=== PATIENT | female | born 1935 | race Caucasian/White ===

== ENCOUNTER → 2016-07-10 | Outpatient (CLI) | payer MEDICARE, OTHER ==
[~2016-07-10] MED LIST: TAPAZOLE5 MG PO
== END ==
LOC: LAB 12:27
DX: Z51.81 Encounter for therapeutic drug level monitoring (principal); Z79.01 Long term (current) use of anticoagulants; I48.0 Paroxysmal atrial fibrillation

== ENCOUNTER → 2016-07-31 | Outpatient (CLI) | payer MEDICARE, OTHER | LOC: LAB 14:55 | DX: Z51.81 Encounter for therapeutic drug level monitoring (principal); I48.0 Paroxysmal atrial fibrillation; Z79.01 Long term (current) use of anticoagulants ==

== ENCOUNTER → 2016-08-28 | Outpatient (CLI) | payer MEDICARE, OTHER ==
[2013-07-18 15:34] VITALS: BP 175/73
== END ==
LOC: LAB 10:14
DX: Z51.81 Encounter for therapeutic drug level monitoring (principal); Z79.01 Long term (current) use of anticoagulants; I48.0 Paroxysmal atrial fibrillation

== ENCOUNTER → 2017-07-02 | Outpatient (CLI) | payer MEDICARE, OTHER ==
[2013-07-18 15:34] VITALS: BP 175/73
[2017-07-02 21:14] LABS: HEMATOCRIT 35.3 % (37.0-47.0); HEMOGLOBIN 11.1 g/dL (12.5-16.0); MEAN CELL VOLUME 96 fl (78-100); MEAN CORPUSCULAR HEMOGLOBIN 30 pg (27-31); MEAN CORPUSCULAR HGB CONC 31 g/dL (33-37); PLATELET COUNT 247 K/mm3 (130-400); RED BLOOD COUNT 3.69 M/mm3 (4.10-5.30); RED CELL DISTRIBUTION WIDTH 13.2 % (11.5-14.5)
[2017-07-02 22:09] LABS: ALBUMIN 3.7 g/dL (3.5-5.0); BUN/CREATININE RATIO 19.2 (6.0-26.0); CALCIUM 9.1 mg/dL (8.4-10.2); POTASSIUM 4.8 mmol/L (3.6-5.0); TOTAL BILIRUBIN 0.2 mg/dL (0.2-1.3); TOTAL PROTEIN 7.1 g/dL (6.3-8.2)
[2017-07-02 23:28] LABS: MEAN PLATELET VOLUME 12.1 fl (7.4-10.4)
[2017-07-02 23:40] LABS: LYMPHOCYTE 37 % (20-51); NEUTROPHILS 30 % (42-75)
[2017-07-02 23:41] LABS: ERYTHROCYTE SEDIMENTATION RATE 31 mm/hr (0-30); MONOCYTE 27 % (3-10)
== END ==
LOC: LAB 16:42
PROVIDERS: Internal Medicine
DX: I48.91 Unspecified atrial fibrillation (principal); E78.5 Hyperlipidemia, unspecified; M85.89 Other specified disorders of bone density and structure, multiple sites; E61.1 Iron deficiency; I27.0 Primary pulmonary hypertension; E05.00 Thyrotoxicosis with diffuse goiter without thyrotoxic crisis or storm; Z12.11 Encounter for screening for malignant neoplasm of colon

== ENCOUNTER → 2018-01-11 | Outpatient (CLI) | payer MEDICARE, OTHER ==
[2013-07-18 15:34] VITALS: BP 175/73
[2018-01-11 15:11] LABS: HEMATOCRIT 33.7 % (37.0-47.0); HEMOGLOBIN 10.5 g/dL (12.5-16.0); MEAN CELL VOLUME 96 fl (78-100); MEAN CORPUSCULAR HEMOGLOBIN 30 pg (27-31); MEAN CORPUSCULAR HGB CONC 31 g/dL (33-37); MEAN PLATELET VOLUME 11.8 fl (7.4-10.4); PLATELET COUNT 238 K/mm3 (130-400); RED BLOOD COUNT 3.51 M/mm3 (4.10-5.30); RED CELL DISTRIBUTION WIDTH 13.5 % (11.5-14.5); WHITE BLOOD COUNT 2.2 K/mm3 (4.8-10.8)
[2018-01-11 16:12] LABS: ALBUMIN 3.8 g/dL (3.5-5.0); POTASSIUM 4.7 mmol/L (3.6-5.0); TOTAL BILIRUBIN 0.4 mg/dL (0.2-1.3); TOTAL PROTEIN 6.7 g/dL (6.3-8.2)
[2018-01-11 21:50] LABS: BAND 2 % (0-10); LYMPHOCYTE 40 % (20-51); MONOCYTE 33 % (3-10); NEUTROPHILS 14 % (42-75)
[2018-01-11 21:51] LABS: ERYTHROCYTE SEDIMENTATION RATE 38 mm/hr (0-30)
== END ==
LOC: LAB 14:30
PROVIDERS: Internal Medicine
DX: I48.91 Unspecified atrial fibrillation (principal); E05.00 Thyrotoxicosis with diffuse goiter without thyrotoxic crisis or storm; E61.1 Iron deficiency; M85.80 Other specified disorders of bone density and structure, unspecified site

== ENCOUNTER → 2018-07-18 | Outpatient (CLI) | payer MEDICARE, OTHER ==
[2013-07-18 15:34] VITALS: BP 175/73
[2018-07-18 16:45] LABS: CALCIUM 9.3 mg/dL (8.4-10.2); POTASSIUM 4.4 mmol/L (3.6-5.0); TOTAL BILIRUBIN 0.3 mg/dL (0.2-1.3); TOTAL PROTEIN 7.5 g/dL (6.3-8.2)
[2018-07-18 16:47] LABS: HEMATOCRIT 34.6 % (37.0-47.0); HEMOGLOBIN 10.7 g/dL (12.5-16.0); MEAN CELL VOLUME 96 fl (78-100); MEAN CORPUSCULAR HEMOGLOBIN 30 pg (27-31); MEAN CORPUSCULAR HGB CONC 31 g/dL (33-37); MEAN PLATELET VOLUME 11.2 fl (7.4-10.4); PLATELET COUNT 263 K/mm3 (130-400); RED BLOOD COUNT 3.61 M/mm3 (4.10-5.30); RED CELL DISTRIBUTION WIDTH 13.2 % (11.5-14.5)
[2018-07-18 20:31] LABS: WHITE BLOOD COUNT 1.9 K/mm3 (4.8-10.8)
[2018-07-18 20:39] LABS: LYMPHOCYTE 54 % (20-51); MONOCYTE 25 % (3-10); NEUTROPHILS 10 % (42-75)
[2018-07-19 00:45] LABS: ERYTHROCYTE SEDIMENTATION RATE 30 mm/hr (0-30)
== END ==
LOC: LAB 15:57
PROVIDERS: Internal Medicine
DX: E61.1 Iron deficiency (principal); M85.89 Other specified disorders of bone density and structure, multiple sites; E78.5 Hyperlipidemia, unspecified; I27.0 Primary pulmonary hypertension; I48.91 Unspecified atrial fibrillation; R20.2 Paresthesia of skin

== ENCOUNTER → 2018-08-02 | Outpatient (CLI) | payer MEDICARE, OTHER ==
[2013-07-18 15:34] VITALS: BP 175/73
== END ==
LOC: RAD 11:00
DX: M18.10 Unilateral primary osteoarthritis of first carpometacarpal joint, unspecified hand (principal)

== ENCOUNTER → 2019-09-20 | Outpatient (CLI) | payer MEDICARE, OTHER ==
[2013-07-18 15:34] VITALS: BP 175/73
[2019-09-20 11:58] LABS: ALBUMIN 3.9 g/dL (3.4-4.8); HEMATOCRIT 36.4 % (37.0-47.0); HEMOGLOBIN 10.9 g/dL (12.5-16.0); MEAN CELL VOLUME 96 fl (78-100); MEAN CORPUSCULAR HEMOGLOBIN 29 pg (27-31); MEAN CORPUSCULAR HGB CONC 30 g/dL (33-37); MEAN PLATELET VOLUME 10.4 fl (7.4-10.4); PLATELET COUNT 294 K/mm3 (130-400); POTASSIUM 4.8 mmol/L (3.5-5.1); RED CELL DISTRIBUTION WIDTH 14.2 % (11.5-14.5); WHITE BLOOD COUNT 2.8 K/mm3 (4.8-10.8)
[2019-09-20 11:59] LABS: CALCIUM 9.4 mg/dL (8.3-10.5)
[2019-09-20 12:00] LABS: TOTAL PROTEIN 7.5 g/dL (6.2-8.1)
[2019-09-20 12:02] LABS: TOTAL BILIRUBIN 0.3 mg/dL (0.2-1.2)
[2019-09-20 12:39] LABS: LYMPHOCYTE 31 % (20-51); MONOCYTE 25 % (3-10); NEUTROPHILS 39 % (42-75)
[2019-09-20 13:24] LABS: ERYTHROCYTE SEDIMENTATION RATE 67 mm/hr (0-30)
== END ==
LOC: LAB 10:34
PROVIDERS: Internal Medicine
DX: I48.91 Unspecified atrial fibrillation (principal); E61.1 Iron deficiency; M85.89 Other specified disorders of bone density and structure, multiple sites; I27.0 Primary pulmonary hypertension; R20.2 Paresthesia of skin

== ENCOUNTER → 2020-07-16 | Outpatient (CLI) | payer MEDICARE, OTHER ==
[2013-07-18 15:34] VITALS: BP 175/73
[2020-07-16 15:24] LABS: HEMATOCRIT 37.7 % (37.0-47.0); HEMOGLOBIN 11.4 g/dL (12.5-16.0); MEAN CELL VOLUME 98 fl (78-100); MEAN CORPUSCULAR HEMOGLOBIN 30 pg (27-31); MEAN CORPUSCULAR HGB CONC 30 g/dL (33-37); MEAN PLATELET VOLUME 10.4 fl (7.4-10.4); PLATELET COUNT 231 K/mm3 (130-400); RED BLOOD COUNT 3.85 M/mm3 (4.10-5.30); RED CELL DISTRIBUTION WIDTH 13.2 % (11.5-14.5)
[2020-07-16 15:44] LABS: ALBUMIN 3.9 g/dL (3.4-4.8)
[2020-07-16 15:45] LABS: WHITE BLOOD COUNT 1.8 K/mm3 (4.8-10.8)
[2020-07-16 15:46] LABS: CALCIUM 9.4 mg/dL (8.3-10.5)
[2020-07-16 15:49] LABS: TOTAL BILIRUBIN 0.2 mg/dL (0.2-1.2)
[2020-07-16 16:15] LABS: POTASSIUM 4.1 mmol/L (3.5-5.1)
[2020-07-16 16:17] LABS: TOTAL PROTEIN 7.2 g/dL (6.2-8.1)
[2020-07-16 16:40] LABS: LYMPHOCYTE 39 % (20-51); MONOCYTE 33 % (3-10); NEUTROPHILS 21 % (42-75); TEAR DROP CELLS 2+
== END ==
LOC: LAB 15:06
PROVIDERS: Internal Medicine
DX: D72.819 Decreased white blood cell count, unspecified (principal); K90.9 Intestinal malabsorption, unspecified; I27.20 Pulmonary hypertension, unspecified; E05.00 Thyrotoxicosis with diffuse goiter without thyrotoxic crisis or storm

== ENCOUNTER → 2021-02-03 | Outpatient (CLI) | payer MEDICARE, OTHER ==
[2021-02-03 16:39] LABS: HEMATOCRIT 37.7 % (37.0-47.0); HEMOGLOBIN 11.6 g/dL (12.5-16.0); MEAN CELL VOLUME 96 fl (78-100); MEAN CORPUSCULAR HEMOGLOBIN 30 pg (27-31); MEAN CORPUSCULAR HGB CONC 31 g/dL (33-37); MEAN PLATELET VOLUME 10.5 fl (7.4-10.4); PLATELET COUNT 232 K/mm3 (130-400); RED BLOOD COUNT 3.92 M/mm3 (4.10-5.30); RED CELL DISTRIBUTION WIDTH 14.8 % (11.5-14.5); WHITE BLOOD COUNT 2.2 K/mm3 (4.8-10.8)
[2021-02-03 16:54] LABS: CALCIUM 9.6 mg/dL (8.3-10.5)
[2021-02-03 16:56] LABS: TOTAL PROTEIN 7.3 g/dL (6.2-8.1)
[2021-02-03 16:57] LABS: TOTAL BILIRUBIN 0.3 mg/dL (0.2-1.2)
[2021-02-03 18:08] LABS: ERYTHROCYTE SEDIMENTATION RATE 20 mm/hr (0-30); LYMPHOCYTE 46 % (20-51); MONOCYTE 20 % (3-10); NEUTROPHILS 24 % (42-75)
== END ==
LOC: LAB 15:58
PROVIDERS: Internal Medicine
DX: E05.00 Thyrotoxicosis with diffuse goiter without thyrotoxic crisis or storm (principal); I48.0 Paroxysmal atrial fibrillation; K90.9 Intestinal malabsorption, unspecified; I27.20 Pulmonary hypertension, unspecified

== ENCOUNTER → 2023-08-03 | Outpatient (CLI) | payer MEDICARE ==
[2023-08-03 12:40] LABS: HEMATOCRIT 34.2 % (37.0-47.0); HEMOGLOBIN 10.2 g/dL (12.5-16.0); MEAN CELL VOLUME 92 fl (78-100); MEAN CORPUSCULAR HEMOGLOBIN 27 pg (27-31); MEAN CORPUSCULAR HGB CONC 30 g/dL (33-37); MEAN PLATELET VOLUME 9.7 fl (7.4-10.4); PLATELET COUNT 392 K/mm3 (130-400); RED BLOOD COUNT 3.73 M/mm3 (4.10-5.30); RED CELL DISTRIBUTION WIDTH 18.3 % (11.5-14.5); WHITE BLOOD COUNT 2.1 K/mm3 (4.8-10.8)
[2023-08-03 13:11] LABS: NEUTROPHILS 16 % (42-75)
[2023-08-03 13:12] LABS: MONOCYTE 32 % (3-10)
[2023-08-03 13:13] LABS: HYPOCHROMIA 1+; LYMPHOCYTE 45 % (20-51); SCHISTOCYTES 1+
[2023-08-03 13:14] LABS: OVALOCYTES 1+
== END ==
LOC: LAB 12:17
PROVIDERS: Internal Medicine
DX: D64.9 Anemia, unspecified (principal)

== ENCOUNTER → 2024-01-03 | Outpatient (CLI) | payer MEDICARE ==
[2024-01-03 15:52] LABS: HEMATOCRIT 39.2 % (37.0-47.0); HEMOGLOBIN 12.6 g/dL (12.5-16.0); MEAN CELL VOLUME 96 fl (78-100); MEAN CORPUSCULAR HEMOGLOBIN 31 pg (27-31); MEAN CORPUSCULAR HGB CONC 32 g/dL (33-37); PLATELET COUNT 188 K/mm3 (130-400); RED BLOOD COUNT 4.07 M/mm3 (4.10-5.30); RED CELL DISTRIBUTION WIDTH 14.1 % (11.5-14.5); WHITE BLOOD COUNT 2.2 K/mm3 (4.8-10.8)
[2024-01-03 15:56] LABS: ALBUMIN 3.9 g/dL (3.4-4.8)
[2024-01-03 15:57] LABS: CALCIUM 9.3 mg/dL (8.3-10.5)
[2024-01-03 15:58] LABS: TOTAL PROTEIN 6.7 g/dL (6.2-8.1)
[2024-01-03 16:00] LABS: TOTAL BILIRUBIN 0.4 mg/dL (0.2-1.2)
[2024-01-03 16:17] LABS: BAND 3 % (0-10); LYMPHOCYTE 39 % (20-51); MONOCYTE 19 % (3-10); NEUTROPHILS 39 % (42-75)
== END ==
LOC: LAB 15:32
PROVIDERS: Internal Medicine
DX: I48.0 Paroxysmal atrial fibrillation (principal); D64.9 Anemia, unspecified; M13.80 Other specified arthritis, unspecified site; E05.00 Thyrotoxicosis with diffuse goiter without thyrotoxic crisis or storm